=== PATIENT | female | born 1970 | race Caucasian/White ===

== ENCOUNTER 2016-10-24 08:28 | Emergency (ER) | payer OTHER, BC ==
[~2016-10-24] VITALS: Ht 167.6 cm; Wt 100.0 kg
[~2016-10-24 08:28] MED LIST: CORTIS10A AD; LORT5TAB PO; NAPR550 PO
[2016-10-24 08:37] VITALS: BP 165/93; PULSE 78; RESP 16; TEMP 97.8; O2SAT 100
[2016-10-24] MEDS ORDERED: LEVO.15 PO (08:43)
[2016-10-24] MEDS ORDERED: IBUP400T20 PO (08:43)
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
[2016-10-24] MEDS ORDERED: SODIUM CHLORID 0.9% 500 ML INJ 500 ML IV ONE (08:45)
[2016-10-24] MEDS ORDERED: ONDANSETRON HCL 4 MG/2 ML VIAL IV PUSH ONE (08:45)
[2016-10-24] MEDS ORDERED: KETOROLAC TROMETHAMINE 30 MG/ML (IVP) VIAL IV PUSH ONE (08:45)
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
[2016-10-24] MEDS ORDERED: NORC5TAB PO (10:14)
[2016-10-24] MEDS ORDERED: ORPH100T99 PO (10:14)
[2016-10-24] MEDS ORDERED: IBUP-232 PO (10:14)
[2016-10-24] MEDS ORDERED: oxyCODONE/ACETAMINOPHEN 5 MG/325 MG TAB PO ONE (10:15)
[2016-10-24 10:33] VITALS: BP 159/80; PULSE 71; RESP 16; O2SAT 100
[2016-10-24 11:15] VITALS: RESP 16
== END 2016-10-24 11:22 | disposition home or self-care (01) ==
LOC: PHED 08:28
DX: S16.1XXA Strain of muscle, fascia and tendon at neck level, initial encounter (principal); M54.9 Dorsalgia, unspecified; E03.9 Hypothyroidism, unspecified; V43.52XA Car driver injured in collision with other type car in traffic accident, initial encounter; Y93.89 Activity, other specified; Y92.410 Unspecified street and highway as the place of occurrence of the external cause; Y99.8 Other external cause status
CPT/HCPCS: 71010; 72020; 72100; 72125; 96361; 96374; 96375; 99285; J1885; J2405; J7040